=== PATIENT | male | born 1985 | race African-American/Black ===

== ENCOUNTER 2017-11-01 00:13 | Emergency (ER) | payer BC ==
[~2017-11-01] VITALS: Ht 175.3 cm; Wt 74.8 kg
[2017-11-01 00:30] VITALS: BP 119/77
[2017-11-01] MEDS ORDERED: AZITHROMYCIN250 MG ORAL (00:54)
[2017-11-01] MEDS ORDERED: PSEUDOEPHEDRINE60 MG PO (00:54)
--- NOTE | 2017-11-01 00:54 | Emergency Room Report ---
History of Present Illness General Chief Complaint: Earache Source: Patient Present Illness [facility] This is a 32-year-old male with no past medical history. He presents with chief complaint of left ear pain. Also with a cough and congestion. Has cough congestion for the last 4 days. Pain today. No fever chills. Nose is stuffy. Pain is 7 out of 10. No other complaints. No drainage. Allergies: Coded Allergies: No Known Allergies (Unverified , 11/01/17) Patient History Past Medical History: none, see triage record, old chart reviewed Past Surgical History: none Pertinent Family History: none Social History: Denies: smoking Immunizations: other Reviewed Nursing Documentation: PMH: Agreed, PSxH: Agreed Nursing Documentation-PMH Past Medical History: No Stated History Review of Systems Eye: Denies: eye pain, blurred vision ENT: Reports: ear pain, nose congestion, Denies: throat swelling Respiratory: Reports: cough, sputum, Denies: shortness of breath Cardiovascular: Denies: chest pain, palpitations Gastrointestinal: Denies: abdominal pain, diarrhea, nausea, vomiting Musculoskeletal: Denies: back pain, joint pain Skin: Denies: rash Neurological: Denies: headache, numbness Endocrine: Denies: increased thirst, increased urine Hematologic/Lymphatic: Denies: easy bruising All Other Systems: negative except mentioned in HPI Physical Exam Vital Signs Date Time Temp Pulse Resp B/P (MAP) Pulse Ox O2 Delivery O2 Flow Rate FiO2 11/01/17 00:19 97.8 68 20 119/77 98 Room Air 97.9 vitals normal Sp02 EP Interpretation: reviewed, normal General Appearance: well appearing, no apparent distress, alert Head: normocephalic, atraumatic Eyes: bilateral eye PERRL, bilateral eye EOMI ENT: hearing grossly normal, normal pharynx, other - Bilateral ear canal impacted with cerumen Neck: full range of motion, supple, no meningismus Respiratory: chest non-tender, lungs clear, normal breath sounds Cardiovascular #1: regular rate, rhythm, no murmur Gastrointestinal: normal bowel sounds, non tender, no mass, no organomegaly, no bruit, non-distended Musculoskeletal: back normal, gait/station normal, normal range of motion Psychiatric: mood/affect normal Skin: warm/dry Procedures Additional Procedure Procedure Narrative Procedure: Cerumen disimpaction Indication: Cerumen impaction Procedure description: I irrigated the ear with normal saline. Then using an ear curet, I removed hard cerumen bilaterally. Patient tolerated procedure without any problem. No perforation. Medical Decision Making Diagnostic Impression: Primary Impression: Acute otitis media, bilateral Additional Impression: Impacted cerumen of both ears ER Course Patient with viral illness, complicated by otitis media bilaterally. After disimpaction, both TMs are erythematous. Left greater than right. No perforation. No trauma. Last Vital Signs Date Time Temp Pulse Resp B/P (MAP) Pulse Ox O2 Delivery O2 Flow Rate FiO2 11/01/17 00:19 97.8 68 20 119/77 98 Room Air 97.9 Status: improved Disposition: HOME, SELF-CARE Condition: Stable Scripts Azithromycin* (ZITHROMAX*) 250 Mg Tablet 250 MG ORAL DAILY, #6 TAB 0 Refills Take two tablets by mouth today, then take one tablet by mouth daily for four days Prov: JAYLIN BAZAN M.D. 11/01/17 Pseudoephedrine Hcl* (SUDAFED*) 60 Mg Tablet 60 MG PO Q6H, #30 TAB Prov: JAYLIN BAZAN M.D. 11/01/17 Patient Instructions: Otitis Media, Adult, [id number] Additional Instructions: Follow-up with your doctor in 7 days. Return of worse. Motrin or Tylenol for fever and pain. JAYLIN BAZAN M.D. Nov 01, 2017 00:54
== END 2017-11-01 01:05 | disposition home or self-care (01) ==
LOC: EMR 00:36
DX: H66.93 Otitis media, unspecified, bilateral (principal); H61.23 Impacted cerumen, bilateral
CPT/HCPCS: 99283